=== PATIENT | male | born 1980 | race Caucasian/White ===

== ENCOUNTER 2023-01-13 23:13 | Emergency (ER) | payer OTHER, SELFPAY ==
--- NOTE | ~2023-01-13 | XR_ITS ---
Portable chest x-ray Comparison: None Clinical History: Cough, Covid Findings: Mild haziness noted at the left lung base. Right lung clear. Cardiomediastinal silhouette is stable. Bones and soft tissues are unremarkable. Impression: Focal mild haziness left lung base, nonspecific. Correlate for focal pneumonitis or atelectasis. Reviewed, dictated and finalized at [facility]. LIANCE ADVISOR Impression: Focal mild haziness left lung base, nonspecific. Correlate for focal pneumoniti s or atelectasis.
[2023-01-13 23:16] VITALS: BP 147/96; PULSE 77; RESP 20; TEMP 36.6; O2SAT 96
--- NOTE | 2023-01-13 23:20 | ECG_ITS ---
Measurements Intervals [place] Rate: 69 P: 75 NM: 200 QRS: -79 QRSD: 104 T: 53 QT: 408 QTc: 438 Interpretive Statements SINUS RHYTHM MARKED LEFT AXIS DEVIATION [QRS AXIS < -30] LOW QRS VOLTAGE IN PRECORDIAL LEADS [QRS DEFLECTION < 1.0 mV IN CHEST LEADS] BORDERLINE ECG NO PREVIOUS ECG AVAILABLE FOR COMPARISON Electronically Signed On 01-14-2023 10:43:36 NURSE HEALTHCARE MANAGER by Gene Loyola M.D.
[2023-01-14] MEDS: ONDANSETRON INJ 4 MG/2 ML VIAL IV PUSH (01:05)
[2023-01-14] MEDS: SODIUM CHLORIDE 0.9% IV 1,000 ML 999 ML IV CONT (01:05)
[2023-01-14 01:08] LABS: Basophils Absolute Auto 0.1 K/mm3 (0.0-0.1); Basophils Percent Auto 0.6 % (0.2-1.2); Eosinophils Absolute Auto 0.2 K/mm3 (0-0.3); Eosinophils Percent Auto 2.4 % (0-4.4); Hematocrit 44.2 % (42.0-52.0); Hemoglobin 14.4 g/dL (14.0-18.0); Immature Granulocyte Absolute 0.07 K/mm3 (0.00-0.031); Immature Granulocyte Percent A 0.8 % (0-0.5); Lymphocytes Absolute Auto 2.94 K/mm3 (0.9-3.2); Lymphocytes Percent Auto 31.5 % (18.3-44.2); Mean Corpuscular HGB Conc 32.6 g/dl (32-36); Mean Corpuscular Hemoglobin 27.7 pg (26-34); Monocytes Absolute Auto 1.1 K/mm3 (0.1-0.6); Monocytes Percent Auto 11.3 % (2.6-8.5); Neutrophils Percent Auto 53.4 % (45.5-73.1); Platelet Count Result 260 k/mm3 (150-375); Red Cell Distribution Width 14.4 % (11.5-14.5); White Blood Count 9.3 K/mm3 (4.5-10.0)
[2023-01-14 01:23] LABS: Alanine Aminotransferase 36 U/L (6-50); Alkaline Phosphatase 104 U/L (38-126); Anion Gap 7 mmol/L (8-16); Aspartate Amino Transferase 47 U/L (17-59); Bilirubin,Total 0.6 mg/dL (0.2-1.3); Blood Urea Nitrogen 9 mg/dL (9-20); Calcium 8.7 mg/dL (8.4-10.2); Carbon Dioxide 27 mmol/L (22-30); Chloride 100 mmol/L (98-107); Estimated CRCL calculation 192 ml/min; Estimated Glomerular Filt Rate > 60; Glucose 163 mg/dL (65-110); Potassium 3.7 mmol/L (3.4-5.0); Sodium 134 mmol/L (137-145)
--- NOTE | 2023-01-14 01:41 | ED.GENADULT ---
HPI - General Adult General Chief complaint: Upper Respiratory Infection Stated complaint: COVID symptoms, symptoms getting worse, chest pain Time Seen by Provider: 01/14/23 00:31 History of Present Illness HPI narrative: Patient is a 42-year-old male who presents ER with concerns for dehydration and pain in the left chest wall. Reports he was beginning to feel ill on 01/09/2023. He then tested positive for COVID on 01/11/2023. He has been having coughing congestion as well as sore throat. He has had subjective fevers and chills. His pain to his left anterior chest wall when he coughs. He has no exertional dyspnea or chest pain. He has not identified alleviating factors. Related Data Allergies Allergy/AdvReac Type Severity Reaction Status Date / Time No Known Allergies Allergy Unverified 09/27/17 09:39 Review of Systems Review of Systems: All systems reviewed & are unremarkable except as noted in HPI and below Constitutional: Constitutional: Reports chills, Reports fatigue and Reports fever(s) ENT: Reports nasal congestion and Reports sore throat Cardiovascular: Cardiovascular: Reports chest pain ( with cough), Denies rapid heart rate and Denies radiating jaw, neck or arm pain Respiratory: Respiratory: Reports cough, Denies dyspnea and Denies wheezing Gastrointestinal: Gastrointestinal: Reports no additional gastrointestinal complaints PMF Past Medical History Medical History (Updated 01/14/23 @ 02:11 by Kwame Kilpatrick MD) Diabetes Hyperlipidemia Hypertension Surgical History Surgical History (Updated 01/14/23 @ 01:44 by Kwame Kilpatrick MD) No pertinent past surgical history Exam Narrative: GENERAL: Well-appearing, morbidly obese, and in no acute distress. HEAD: Normocephalic, atraumatic. EYES: PERRL and EOMI. ENT: Mucous membranes moist. CHEST: Clear to auscultation. No respiratory distress. HEART: Regular rate and rhythm. Normal peripheral pulses. EXTREMITIES: Normal range of motion. No edema. NEURO: Alert and oriented x3. PSYCH: Normal mood and affect. Course Course Emergency Course: Patient feels improved after fluids and Zofran. Chest x-ray without acute process. Right side appears a bit more hazy left but felt that this is projection on due to patient's body habitus. Vital Signs Vital signs: Vital Signs Temperature 97.8 F 01/13/23 23:16 Pulse Rate 77 01/13/23 23:16 Respiratory Rate 20 01/13/23 23:16 Blood Pressure 147/96 H 01/13/23 23:16 Pulse Oximetry 96 01/13/23 23:16 Oxygen Delivery Room Air 01/13/23 23:16 Temperature 97.8 F 01/13/23 23:16 Pulse Rate 77 01/13/23 23:16 Respiratory Rate 20 01/13/23 23:16 Blood Pressure 147/96 H 01/13/23 23:16 Pulse Oximetry 96 01/13/23 23:16 Oxygen Delivery Room Air 01/14/23 01:24 Medical Decision Making Vital Signs Vital Signs: Vital Signs Temperature 97.8 F 01/13/23 23:16 Pulse Rate 77 01/13/23 23:16 Respiratory Rate 20 01/13/23 23:16 Blood Pressure 147/96 H 01/13/23 23:16 Pulse Oximetry 96 01/13/23 23:16 Oxygen Delivery Room Air 01/13/23 23:16 Temperature 97.8 F 01/13/23 23:16 Pulse Rate 77 01/13/23 23:16 Respiratory Rate 20 01/13/23 23:16 Blood Pressure 147/96 H 01/13/23 23:16 Pulse Oximetry 96 01/13/23 23:16 Oxygen Delivery Room Air 01/14/23 01:24 Lab Data 01/14/23 00:58 01/14/23 00:58 Labs: Lab Results 01/14/23 Range/Units 00:58 WBC 9.3 (4.5-10.0) K/mm3 RBC 5.20 (4.6-6.20) M/mm3 Hgb 14.4 (14.0-18.0) g/dL Hct 44.2 (42.0-52.0) % MCV 85.0 (80-100) fl MCH 27.7 (26-34) pg MCHC 32.6 (32-36) g/dl RDW 14.4 (11.5-14.5) % Plt Count 260 (150-375) k/mm3 MPV 10.0 (7.4-10.4) fl Immature Gran % (Auto) 0.8 H (0-0.5) % Neut % (Auto) 53.4 (45.5-73.1) % Lymph % (Auto) 31.5 (18.3-44.2) % [place] % (Auto) 11.3 H (2.6-8.5) % Eos % (Auto) 2.4 (0-4.4)
[2023-01-14 01:55] VITALS: BP 189/114; PULSE 73; RESP 18; O2SAT 98
[2023-01-14 02:05] VITALS: O2SAT 97
[2023-01-14 02:15] VITALS: BP 158/103; PULSE 79; RESP 20; O2SAT 97
== END 2023-01-14 03:02 | disposition home or self-care (01) ==
PROVIDERS: Emergency Provider Emergency Medicine
DX: U07.1 COVID-19 (principal); R09.1 Pleurisy; I10 Essential (primary) hypertension; E11.9 Type 2 diabetes mellitus without complications; E78.5 Hyperlipidemia, unspecified; R94.31 Abnormal electrocardiogram [ECG] [EKG]
CPT/HCPCS: 36415; 71045; 80053; 85025; 93005; 96361; 96374; 99284; J2405; J7030